=== PATIENT | female | born 1945 | race Caucasian/White ===

== ENCOUNTER 2017-10-25 08:08 | Emergency (ER) | payer MEDICARE, OTHER ==
[~2017-10-25] VITALS: Wt 77.1 kg
[~2017-10-25 08:08] MED LIST: AMARYL2 MG PO; ASPIRIN81 M1 PO; CITALOPRAM40 MG PO; CLARITIN10 MG PO; LEVOTHYROXINE0.1 MG PO; LISINOPRIL-HYDR1 TAB PO; PRILOSEC20 M1 PO; RALOXIFENE HCL60 MG PO; TRAZODONE50 MG PO; TRIAMTERENE & H1 CAP PO; ZOCOR20 MG PO
[2017-10-25 08:33] LABS: BILIRUBIN NEGATIVE (NEGATIVE); BLOOD 1+ (NEGATIVE); CLARITY CLEAR (CLEAR); COLOR YELLOW (YELLOW); GLUCOSE NEGATIVE (NEGATIVE); KETONE NEGATIVE (NEGATIVE); LEUKO ESTERASE NEGATIVE (NEGATIVE); NITRITE NEGATIVE (NEGATIVE); UROBILINOGEN 0.2 E.U./dl (0.2-1.0)
[2017-10-25 08:38] LABS: HEMATOCRIT 35.6 % (37.0-47.0); HEMOGLOBIN 11.2 g/dl (12.0-16.0); MEAN CELL VOLUME 80.4 fl (81.0-99.0); MEAN CORPUSCULAR HGB 25.3 pg (27.0-31.0); MEAN CORPUSCULAR HGB CONC 31.5 g/dl (33.0-37.0); MEAN PLATELET VOLUME 9.6 fl (9.6-12.3); PLATELET COUNT AUTOMATED 554 10*3/uL (130-400); RED BLOOD COUNT 4.43 10*6/uL (4.10-5.10); RED CELL DISTRI WIDTH 16.4 % (0-14.5); WHITE BLOOD COUNT 24.4 10*3/uL (4.8-10.8)
[2017-10-25 08:40] LABS: BACTERIA TRACE; EPITHELIAL CELLS 16-20; RBC 16-20 rbc/hpf (0-2)
[2017-10-25 08:51] LABS: BUN 22 mg/dl (7-24); CHLORIDE 101 mmol/L (98-107); CREATININE 0.85 mg/dL (0.55-1.02); POTASSIUM 3.2 mmol/L (3.5-5.1); SODIUM 139 mmol/L (136-145)
[2017-10-25 08:58] LABS: PLATELET SUFFICIENCY HIGH (NORMAL); SCHISTOCYTES FEW; TOTAL CELLS COUNTED 100 #CELLS
== END 2017-10-25 11:44 | disposition home or self-care (01) ==
LOC: ED 08:08
PROVIDERS: Emergency Medicine
DX: E87.6 Hypokalemia (principal); T38.3X5A Adverse effect of insulin and oral hypoglycemic [antidiabetic] drugs, initial encounter; D47.3 Essential (hemorrhagic) thrombocythemia; R91.8 Other nonspecific abnormal finding of lung field; D72.829 Elevated white blood cell count, unspecified; E11.649 Type 2 diabetes mellitus with hypoglycemia without coma; I25.2 Old myocardial infarction; Z85.118 Personal history of other malignant neoplasm of bronchus and lung; Z79.899 Other long term (current) drug therapy; Z79.82 Long term (current) use of aspirin; Z90.710 Acquired absence of both cervix and uterus; Z90.89 Acquired absence of other organs; Y92.9 Unspecified place or not applicable